=== PATIENT | male | born 1990 | race Caucasian/White ===

== ENCOUNTER 2017-05-22 19:30 | Emergency (ER) | payer MEDICAID, SELFPAY ==
[~2017-05-22] VITALS: Ht 185.4 cm; Wt 83.6 kg
[2017-05-22 19:37] VITALS: BP 127/82
[2017-05-22] MEDS ORDERED: CEFTRIAXONE 250 MG IM ONE (20:00)
[2017-05-22] MEDS ORDERED: AZITHROMYCIN 500 MG TABLET PO ONE (20:00)
[2017-05-22] MEDS ORDERED: CEFTRIAXONE 250 MG ONE (20:45)
[2017-05-22] MEDS ORDERED: AZITHROMYCIN 250 MG TABLET ONE (20:46)
== END 2017-05-22 21:28 | disposition home or self-care (01) ==
LOC: ED 20:45
DX: A56.8 Sexually transmitted chlamydial infection of other sites (principal); A54.9 Gonococcal infection, unspecified
CPT/HCPCS: 87491; 87591; 96372; 99284; J0696